=== PATIENT | female | born 1985 | race African-American/Black ===

== ENCOUNTER → 2022-08-06 15:16 | Outpatient (CLI) | payer BC, SELFPAY ==
--- NOTE | ~2022-08-06 | US_ITS ---
EXAMINATION: US pelvic complete w TV DATE: 08/06/2022 16:03 INDICATION: Excessive and frequent menstruation. TECHNIQUE: Multiple transabdominal and transvaginal sonographic images of the pelvis were obtained. COMPARISON: None. FINDINGS: TRANSABDOMINAL ULTRASOUND: The uterus measures 8.2 x 5.5 x 5.3 cm. There is no free fluid in the pelvis. TRANSVAGINAL ULTRASOUND: The endometrial complex measures 8 mm in thickness. There is a 2.3 cm subserosal fibroid. There is a 2.5 cm subserosal fibroid. The right ovary measures 2.4 x 1.6 x 1.6 cm. The left ovary measures 3.2 x 2.2 x 2.5 cm. There is normal vascular flow in the ovaries. IMPRESSION: 1. Uterine fibroids. Reviewed, dictated and finalized at location A. [facility] IMPRESSION: 1. Uterine fibroids.
== END ==
PROVIDERS: PCP Nurse Practitioner; Visit Provider Nurse Practitioner
DX: N92.0 Excessive and frequent menstruation with regular cycle (principal); D25.9 Leiomyoma of uterus, unspecified
CPT/HCPCS: 76830; 76856

== ENCOUNTER 2022-08-06 15:52 | Outpatient (CLI) | payer BC, SELFPAY ==
[2022-08-06 18:47] LABS: Hematocrit 42.4 % (37.0-47.0); Hemoglobin 14.3 g/dL (12.0-15.0); Mean Corpuscular HGB Conc 33.7 g/dl (32-36); Mean Corpuscular Hemoglobin 28.2 pg (26-34); Mean Corpuscular Volume 83.6 fl (80-100); Mean Platelet Volume 8.7 fl (7.4-10.4); Platelet Count Result 368 k/mm3 (150-375); Red Blood Count 5.07 M/mm3 (4.2-5.4)
[2022-08-06 19:43] LABS: Free T4 Free Thyroxine 1.04 ng/mL (0.78-2.19)
[2022-08-06 19:46] LABS: Thyroid Stimulating Hormone 0.657 uIU/mL (0.465-4.680)
== END 2022-08-06 15:53 | disposition home or self-care (01) ==
LOC: ANHGOSHLAB 15:55
PROVIDERS: PCP Nurse Practitioner; Visit Provider Nurse Practitioner
DX: N92.0 Excessive and frequent menstruation with regular cycle (principal)
CPT/HCPCS: 36415; 84439; 84443; 85027